=== PATIENT | male | born 1985 | race Hispanic/Latino ===

== ENCOUNTER 2019-09-01 15:13 | Inpatient (IN) | payer OTHER ==
[~2019-09-01] VITALS: Ht 167.6 cm; Wt 83.9 kg
[2019-09-01] MEDS ORDERED: ACETAMINOPHEN 325 MG TAB ONE (15:34)
[2019-09-01 16:10] LABS: BASOPHILS % (AUTO) 0.1 % (0.0-5.0); HEMATOCRIT 44.7 % (42-54); LYMPHOCYTES % (AUTO) 14.3 % (21.0-51.0); MEAN CORPUSCULAR HEMOGLOBIN 29.6 pg (27.0-33.0); MEAN CORPUSCULAR VOLUME 87.1 fL (79-99); MONOCYTES % (AUTO) 5.4 % (3.0-13.0); NEUTROPHILS % (AUTO) 79.7 % (40.0-77.0); PLATELET COUNT (AUTO) 320 K/uL (130-400); RED BLOOD CELL COUNT(AUTO) 5.13 MIL/uL (4.50-6.20); RED CELL DISTRIBUTION WIDTH 12.1 % (11.0-15.5); WHITE BLOOD COUNT (AUTO) 9.1 K/uL (4.8-10.8)
[2019-09-01 17:00] LABS: CARBON DIOXIDE 27 mmol/L (21-32); CHLORIDE 99 mmol/L (101-111); CREATININE 0.9 mg/dL (0.5-1.5); GLOMERULAR FILTR. RATE CALC 103 mL/min (>60); GLUCOSE,RANDOM 86 mg/dL (70-105); POTASSIUM 3.5 mmol/L (3.5-5.1); SODIUM SERUM 134 mmol/L (136-145); UREA NITROGEN, BLOOD 11 mg/dL (7-18)
[2019-09-01 17:08] LABS: INR 0.92 (0.85-1.15); PARTIAL THROMBOPLASTIN TIME 25.4 SEC (26.3-35.5)
[2019-09-01 17:11] LABS: ALANINE AMINOTRANSFERASE 112 U/L (12-78); ALBUMIN 3.9 g/dL (3.5-5.0); ASPARTATE AMINOTRANSFERASE 42 U/L (10-37); BILIRUBIN,TOTAL 0.6 mg/dL (0.2-1.0); CREATINE KINASE, TOTAL 228 U/L (21-232); MYOGLOBIN 74 ng/mL (10-92); TOTAL PROTEIN, SERUM 8.4 g/dL (6.0-8.3); TROPONIN I < 0.04 ng/mL (0.00-0.06)
[2019-09-01] MEDS ORDERED: CEFTRIAXONE SODIUM 1 GM ONE (17:14)
[2019-09-01] MEDS ORDERED: AZITHROMYCIN 500MG+NS 250ML 250 ML IV ONE (17:14)
[2019-09-01] MEDS ORDERED: SODIUM CHLORIDE 0.9% 50 ML IV ONE (17:15)
[2019-09-01] MEDS ORDERED: ONDANSETRON HCL 4 MG/2 ML VIAL IV PRN (21:30)
[2019-09-01] MEDS: CEFTRIAXONE SODIUM 1 GM IVP SCH (21:30)
[2019-09-01] MEDS: ENOXAPARIN SODIUM 40 MG/0.4 ML SYRINGE SQ SCH (21:30)
[2019-09-01] MEDS ORDERED: HYDRALAZINE HCL 20 MG/ML VIAL IV PRN (21:30)
[2019-09-01] MEDS ORDERED: ALBUTEROL INHALER 90MCG/INH IH PRN (21:30)
[2019-09-01] MEDS ORDERED: ERGOCALCIFEROL (VITAMIN D2) 50,000 UNIT CAPSULE PO ONE (21:30)
[2019-09-01] MEDS ORDERED: ACETAMINOPHEN 325 MG TAB PO PRN ×2 (21:30)
[2019-09-02] MEDS ORDERED: ERGOCALCIFEROL (VITAMIN D2) 50,000 UNIT CAPSULE ONE (00:17)
[2019-09-02] MEDS ORDERED: ACETAMINOPHEN 325 MG TAB ONE (00:23)
[2019-09-02] MEDS ORDERED: DOXYCYCLINE HYCLATE 100 MG TABLET PO ONE ×2 (08:59→20:13)
[2019-09-02] MEDS ORDERED: METHYLPREDNISOLONE SOD SUCC 40MG/ML 1ML ONE ×3 (08:59→20:13)
[2019-09-02] MEDS ORDERED: ASPIRIN 325 MG TABLET ONE (09:00)
[2019-09-02] MEDS ORDERED: BENZONATATE 100 MG CAPSULE PO ONE ×3 (09:00→20:14)
[2019-09-02] MEDS: DOXYCYCLINE HYCLATE 100 MG TABLET PO SCH ×2 (09:00→21:00)
[2019-09-02] MEDS ORDERED: ASCORBIC ACID 500 MG TAB ONE (09:00)
[2019-09-02] MEDS: FAMOTIDINE/PF 20 MG/2 ML VIAL IV SCH ×2 (09:00→21:00)
[2019-09-02] MEDS: ASCORBIC ACID 500 MG TAB PO SCH (09:00)
[2019-09-02] MEDS: ZINC SULFATE 220 CAPSULE PO SCH (09:00)
[2019-09-02] MEDS: BENZONATATE 100 MG CAPSULE PO SCH ×3 (09:00→21:00)
[2019-09-02] MEDS: ASPIRIN 325 MG TABLET PO SCH (09:00)
[2019-09-02] MEDS ORDERED: ACETYLCYSTEINE 600 MG CAPSULE ONE ×2 (09:00→20:13)
[2019-09-02] MEDS: ENOXAPARIN SODIUM 40 MG/0.4 ML SYRINGE SQ SCH (09:00)
[2019-09-02] MEDS: ACETYLCYSTEINE 600 MG CAPSULE PO SCH ×2 (09:00→21:00)
[2019-09-02] MEDS: METHYLPREDNISOLONE SOD SUCC 40MG/ML 1ML IVP SCH ×3 (09:00→21:00)
[2019-09-02] MEDS ORDERED: CEFTRIAXONE SODIUM 1 GM ONE ×2 (09:01→20:14)
[2019-09-02] MEDS ORDERED: ENOXAPARIN SODIUM 40 MG/0.4 ML SYRINGE SQ ONE (09:01)
[2019-09-02] MEDS ORDERED: FAMOTIDINE/PF 20 MG/2 ML VIAL IV ONE ×2 (09:01→20:15)
[2019-09-02] MEDS ORDERED: ZINC SULFATE 220 CAPSULE ONE (09:01)
[2019-09-02] MEDS: CEFTRIAXONE SODIUM 1 GM IVP SCH ×2 (09:30→21:30)
[2019-09-02] MEDS ORDERED: ALBUTEROL INHALER 90MCG/INH IH ONE (20:53)
[2019-09-03] MEDS ORDERED: METHYLPREDNISOLONE SOD SUCC 40MG/ML 1ML ONE ×2 (07:55→14:05)
[2019-09-03] MEDS ORDERED: ASCORBIC ACID 500 MG TAB ONE (07:56)
[2019-09-03] MEDS ORDERED: DOXYCYCLINE HYCLATE 100 MG TABLET PO ONE (07:56)
[2019-09-03] MEDS ORDERED: ASPIRIN 325 MG TABLET ONE (07:56)
[2019-09-03] MEDS ORDERED: BENZONATATE 100 MG CAPSULE PO ONE ×2 (07:57→14:05)
[2019-09-03] MEDS ORDERED: ACETYLCYSTEINE 600 MG CAPSULE ONE (07:57)
[2019-09-03] MEDS ORDERED: CEFTRIAXONE SODIUM 1 GM ONE (07:58)
[2019-09-03] MEDS ORDERED: ZINC SULFATE 220 CAPSULE ONE (07:58)
[2019-09-03] MEDS ORDERED: ENOXAPARIN SODIUM 40 MG/0.4 ML SYRINGE SQ ONE (07:58)
[2019-09-03] MEDS ORDERED: FAMOTIDINE/PF 20 MG/2 ML VIAL IV ONE (07:59)
[2019-09-03] MEDS: METHYLPREDNISOLONE SOD SUCC 40MG/ML 1ML IVP SCH ×3 (09:00→21:28)
[2019-09-03] MEDS: BENZONATATE 100 MG CAPSULE PO SCH ×3 (09:00→21:29)
[2019-09-03] MEDS: ZINC SULFATE 220 CAPSULE PO SCH (09:00)
[2019-09-03] MEDS: FAMOTIDINE/PF 20 MG/2 ML VIAL IV SCH ×2 (09:00→21:28)
[2019-09-03] MEDS: ASPIRIN 325 MG TABLET PO SCH (09:00)
[2019-09-03] MEDS: ENOXAPARIN SODIUM 40 MG/0.4 ML SYRINGE SQ SCH (09:00)
[2019-09-03] MEDS: ASCORBIC ACID 500 MG TAB PO SCH (09:00)
[2019-09-03] MEDS: ACETYLCYSTEINE 600 MG CAPSULE PO SCH ×2 (09:00→21:28)
[2019-09-03] MEDS: DOXYCYCLINE HYCLATE 100 MG TABLET PO SCH ×2 (09:00→21:28)
[2019-09-03] MEDS: CEFTRIAXONE SODIUM 1 GM IVP SCH ×2 (09:30→21:28)
[2019-09-03] MEDS ORDERED: PHARMACY COMMUNICATION MISC SCH (15:30)
[2019-09-03 16:10] VITALS: BP 129/81
[2019-09-03] MEDS ORDERED: REMDESIVIR (INVESTIGATIONAL) 200 MG in SODIUM CHLORIDE 0.9% 250 ML IV SCH (17:00)
[2019-09-03] MEDS ORDERED: REMDESIVIR (EUA) 520 100 MG VIAL IV ONE (17:25)
[2019-09-03 19:55] VITALS: BP 130/87
[2019-09-03 23:49] VITALS: BP 125/80
[2019-09-04 04:06] VITALS: BP 133/75
[2019-09-04 07:51] LABS: BASOPHILS % (AUTO) 0.1 % (0.0-5.0); HEMATOCRIT 43.7 % (42-54); LYMPHOCYTES % (AUTO) 7.2 % (21.0-51.0); MEAN CORPUSCULAR HEMOGLOBIN 29.1 pg (27.0-33.0); MEAN CORPUSCULAR HGB CONC 33.6 g/dL (32.0-36.0); MEAN CORPUSCULAR VOLUME 86.5 fL (79-99); MONOCYTES % (AUTO) 6.1 % (3.0-13.0); NEUTROPHILS % (AUTO) 85.2 % (40.0-77.0); PLATELET COUNT (AUTO) 453 K/uL (130-400); RED BLOOD CELL COUNT(AUTO) 5.05 MIL/uL (4.50-6.20); RED CELL DISTRIBUTION WIDTH 12.1 % (11.0-15.5); WHITE BLOOD COUNT (AUTO) 15.2 K/uL (4.8-10.8)
[2019-09-04 08:00] LABS: ALBUMIN 3.3 g/dL (3.5-5.0); BILIRUBIN,DIRECT 0.1 mg/dL (0.0-0.3); BILIRUBIN,TOTAL 0.3 mg/dL (0.2-1.0); CREATININE 0.9 mg/dL (0.5-1.5); CRP QUANTITATIVE 39.7 mg/L (0.00-9.0); POTASSIUM 3.9 mmol/L (3.5-5.1); TOTAL PROTEIN, SERUM 7.4 g/dL (6.0-8.3)
[2019-09-04 08:10] VITALS: BP 122/64
[2019-09-04] MEDS: ENOXAPARIN SODIUM 40 MG/0.4 ML SYRINGE SQ SCH (09:43)
[2019-09-04] MEDS: FAMOTIDINE/PF 20 MG/2 ML VIAL IV SCH ×2 (09:43→21:23)
[2019-09-04] MEDS: DOXYCYCLINE HYCLATE 100 MG TABLET PO SCH ×2 (09:44→21:24)
[2019-09-04] MEDS: CEFTRIAXONE SODIUM 1 GM IVP SCH ×2 (09:44→21:22)
[2019-09-04] MEDS: ASPIRIN 325 MG TABLET PO SCH (09:44)
[2019-09-04] MEDS: ZINC SULFATE 220 CAPSULE PO SCH (09:44)
[2019-09-04] MEDS: ACETYLCYSTEINE 600 MG CAPSULE PO SCH ×2 (09:44→21:24)
[2019-09-04] MEDS: ASCORBIC ACID 500 MG TAB PO SCH (09:45)
[2019-09-04] MEDS: BENZONATATE 100 MG CAPSULE PO SCH ×3 (09:45→21:24)
[2019-09-04] MEDS: METHYLPREDNISOLONE SOD SUCC 40MG/ML 1ML IVP SCH ×3 (09:45→21:22)
[2019-09-04 11:36] VITALS: BP 111/79
[2019-09-04] MEDS ORDERED: COMPOUND IV REFRIGERATED 1 EACH IVSOLN MISC PRN (12:15)
[2019-09-04 16:34] VITALS: BP 134/83
[2019-09-04] MEDS: REMDESIVIR (INVESTIGATIONAL) 100 MG in SODIUM CHLORIDE 0.9% 250 ML IV SCH (16:34)
[2019-09-04] MEDS ORDERED: REMDESIVIR (EUA) 520 100 MG VIAL IV ONE (16:34)
[2019-09-04] MEDS: REMDESIVIR (EUA) 520 100 MG in SODIUM CHLORIDE 0.9% 250 ML IV SCH (17:00)
[2019-09-04 19:55] VITALS: BP 112/61
[2019-09-04] MEDS: KETOROLAC TROMETHAMINE 30MG/ML IV SCH (21:24)
[2019-09-04 23:34] VITALS: BP 122/78
[2019-09-05] MEDS: KETOROLAC TROMETHAMINE 30MG/ML IV SCH ×4 (02:00→20:14)
[2019-09-05 04:14] VITALS: BP 119/62
[2019-09-05 07:44] LABS: ALBUMIN 3.2 g/dL (3.5-5.0); BILIRUBIN,DIRECT 0.1 mg/dL (0.0-0.3); BILIRUBIN,TOTAL 0.3 mg/dL (0.2-1.0); TOTAL PROTEIN, SERUM 7.2 g/dL (6.0-8.3)
[2019-09-05] MEDS: ENOXAPARIN SODIUM 40 MG/0.4 ML SYRINGE SQ SCH (08:19)
[2019-09-05] MEDS: FAMOTIDINE/PF 20 MG/2 ML VIAL IV SCH ×2 (08:19→20:13)
[2019-09-05] MEDS: ASPIRIN 325 MG TABLET PO SCH (08:19)
[2019-09-05] MEDS: METHYLPREDNISOLONE SOD SUCC 40MG/ML 1ML IVP SCH ×3 (08:19→20:12)
[2019-09-05] MEDS: DOXYCYCLINE HYCLATE 100 MG TABLET PO SCH ×2 (08:20→20:13)
[2019-09-05] MEDS: BENZONATATE 100 MG CAPSULE PO SCH ×3 (08:20→20:13)
[2019-09-05] MEDS: ZINC SULFATE 220 CAPSULE PO SCH (08:20)
[2019-09-05] MEDS: ASCORBIC ACID 500 MG TAB PO SCH (08:20)
[2019-09-05] MEDS: CEFTRIAXONE SODIUM 1 GM IVP SCH ×2 (08:20→20:12)
[2019-09-05] MEDS: ACETYLCYSTEINE 600 MG CAPSULE PO SCH ×2 (08:20→20:13)
[2019-09-05 08:27] VITALS: BP 113/70
[2019-09-05 12:21] VITALS: BP 136/95
[2019-09-05] MEDS: REMDESIVIR (INVESTIGATIONAL) 100 MG in SODIUM CHLORIDE 0.9% 250 ML IV SCH (16:50)
[2019-09-05] MEDS ORDERED: REMDESIVIR (EUA) 520 100 MG VIAL IV ONE (16:50)
[2019-09-05] MEDS: REMDESIVIR (EUA) 520 100 MG in SODIUM CHLORIDE 0.9% 250 ML IV SCH (17:00)
[2019-09-05 17:02] VITALS: BP 128/84
[2019-09-05 19:50] VITALS: BP 131/78
[2019-09-06 00:11] VITALS: BP 115/62
[2019-09-06] MEDS: KETOROLAC TROMETHAMINE 30MG/ML IV SCH ×4 (02:08→21:00)
[2019-09-06 03:50] VITALS: BP 123/78
[2019-09-06 07:51] LABS: HEMATOCRIT 43.5 % (42-54); MEAN CORPUSCULAR HEMOGLOBIN 29.5 pg (27.0-33.0); MEAN CORPUSCULAR HGB CONC 33.8 g/dL (32.0-36.0); MEAN CORPUSCULAR VOLUME 87.2 fL (79-99); RED BLOOD CELL COUNT(AUTO) 4.99 MIL/uL (4.50-6.20); RED CELL DISTRIBUTION WIDTH 12.2 % (11.0-15.5); WHITE BLOOD COUNT (AUTO) 12.7 K/uL (4.8-10.8)
[2019-09-06 08:00] VITALS: BP 124/69
[2019-09-06 08:13] LABS: ALBUMIN 3.3 g/dL (3.5-5.0); BILIRUBIN,DIRECT 0.1 mg/dL (0.0-0.3); BILIRUBIN,TOTAL 0.4 mg/dL (0.2-1.0); CREATININE 0.9 mg/dL (0.5-1.5); POTASSIUM 4.9 mmol/L (3.5-5.1); TOTAL PROTEIN, SERUM 7.1 g/dL (6.0-8.3)
[2019-09-06] MEDS: FAMOTIDINE/PF 20 MG/2 ML VIAL IV SCH ×2 (09:00→21:00)
[2019-09-06] MEDS: CEFTRIAXONE SODIUM 1 GM IVP SCH ×2 (09:00→21:01)
[2019-09-06] MEDS: METHYLPREDNISOLONE SOD SUCC 40MG/ML 1ML IVP SCH ×3 (09:00→20:55)
[2019-09-06] MEDS: ASCORBIC ACID 500 MG TAB PO SCH (09:01)
[2019-09-06] MEDS: ZINC SULFATE 220 CAPSULE PO SCH (09:01)
[2019-09-06] MEDS: ACETYLCYSTEINE 600 MG CAPSULE PO SCH ×2 (09:01→21:00)
[2019-09-06] MEDS: DOXYCYCLINE HYCLATE 100 MG TABLET PO SCH ×2 (09:01→21:00)
[2019-09-06] MEDS: ENOXAPARIN SODIUM 40 MG/0.4 ML SYRINGE SQ SCH (09:02)
[2019-09-06] MEDS: BENZONATATE 100 MG CAPSULE PO SCH ×3 (09:02→21:00)
[2019-09-06] MEDS: ASPIRIN 325 MG TABLET PO SCH (09:02)
[2019-09-06 12:00] VITALS: BP 127/79
[2019-09-06] MEDS ORDERED: ASPI-1012 PO (13:32)
[2019-09-06] MEDS ORDERED: BENZ-51 PO (13:32)
[2019-09-06] MEDS ORDERED: DEXA6TAB7 PO (13:32)
[2019-09-06] MEDS ORDERED: DOXY100T2 PO (13:32)
[2019-09-06] MEDS ORDERED: ASCO500T20 PO (13:32)
[2019-09-06 16:00] VITALS: BP 125/80
[2019-09-06] MEDS: REMDESIVIR (EUA) 520 100 MG in SODIUM CHLORIDE 0.9% 250 ML IV SCH (17:03)
[2019-09-06 20:08] VITALS: BP 118/71
[2019-09-07 00:12] VITALS: BP 127/83
[2019-09-07] MEDS: KETOROLAC TROMETHAMINE 30MG/ML IV SCH ×3 (02:00→13:49)
[2019-09-07 04:12] VITALS: BP 127/74
[2019-09-07 05:31] LABS: BASOPHILS % (AUTO) 0.2 % (0.0-5.0); HEMATOCRIT 43.7 % (42-54); LYMPHOCYTES % (AUTO) 9.4 % (21.0-51.0); MEAN CORPUSCULAR HEMOGLOBIN 29.5 pg (27.0-33.0); MEAN CORPUSCULAR HGB CONC 34.3 g/dL (32.0-36.0); MONOCYTES % (AUTO) 4.8 % (3.0-13.0); PLATELET COUNT (AUTO) 425 K/uL (130-400); RED BLOOD CELL COUNT(AUTO) 5.08 MIL/uL (4.50-6.20); RED CELL DISTRIBUTION WIDTH 11.8 % (11.0-15.5); WHITE BLOOD COUNT (AUTO) 14.8 K/uL (4.8-10.8)
[2019-09-07 05:45] LABS: ALBUMIN 3.2 g/dL (3.5-5.0); BILIRUBIN,DIRECT 0.1 mg/dL (0.0-0.3); BILIRUBIN,TOTAL 0.4 mg/dL (0.2-1.0); CREATININE 0.8 mg/dL (0.5-1.5); POTASSIUM 4.4 mmol/L (3.5-5.1); TOTAL PROTEIN, SERUM 6.9 g/dL (6.0-8.3)
[2019-09-07 08:00] VITALS: BP 116/75
[2019-09-07] MEDS: ACETYLCYSTEINE 600 MG CAPSULE PO SCH (09:21)
[2019-09-07] MEDS: ASPIRIN 325 MG TABLET PO SCH (09:22)
[2019-09-07] MEDS: BENZONATATE 100 MG CAPSULE PO SCH ×2 (09:22→13:50)
[2019-09-07] MEDS: DOXYCYCLINE HYCLATE 100 MG TABLET PO SCH (09:22)
[2019-09-07] MEDS: ZINC SULFATE 220 CAPSULE PO SCH (09:22)
[2019-09-07] MEDS: ASCORBIC ACID 500 MG TAB PO SCH (09:22)
[2019-09-07] MEDS: ENOXAPARIN SODIUM 40 MG/0.4 ML SYRINGE SQ SCH (09:23)
[2019-09-07] MEDS: CEFTRIAXONE SODIUM 1 GM IVP SCH (09:23)
[2019-09-07] MEDS: METHYLPREDNISOLONE SOD SUCC 40MG/ML 1ML IVP SCH ×2 (09:24→13:50)
[2019-09-07] MEDS: FAMOTIDINE/PF 20 MG/2 ML VIAL IV SCH (09:25)
[2019-09-07 12:00] VITALS: BP 120/72
[2019-09-07] MEDS ORDERED: DEXAMETHASONE 4 MG TAB PO SCH (15:55)
[2019-09-07 16:00] VITALS: BP 126/70
[2019-09-07] MEDS: REMDESIVIR (EUA) 520 100 MG in SODIUM CHLORIDE 0.9% 250 ML IV SCH (16:29)
== END 2019-09-07 20:51 | disposition home or self-care (01) | DRG 177 ==
LOC: EDH 15:13 → EDHIP 21:21 → 3BH 09-03 16:11
PROVIDERS: ADMIT Internal Medicine; ATTEND Internal Medicine
DX: U07.1 COVID-19 (principal); J12.89 Other viral pneumonia; J96.01 Acute respiratory failure with hypoxia; Z83.3 Family history of diabetes mellitus; Z82.49 Family history of ischemic heart disease and other diseases of the circulatory system
CPT/HCPCS: 36415; 71045; 80048; 80053; 80076; 82248; 82550; 82728; 83605; 83615; 83874; 84145; 84484; 85025; 85027; 85378; 85610; 85730; 86140; 86850; 86900; 86901; 87040; 87804; 93005; G0378; J0456; J0696; J1650; J1885; J2920; J3490; J7050; J8540